=== PATIENT | male | born 1995 | race Caucasian/White ===

== ENCOUNTER 2022-04-08 12:38 | Emergency (ER) | payer OTHER ==
[~2022-04-08] VITALS: Ht 188 cm; Wt 147.4 kg
[2022-04-08] MEDS ORDERED: METO100ER PO (13:48)
[2022-04-08] MEDS ORDERED: Ventolin/Prove6.7 GM INH (13:48)
[2022-04-08] MEDS ORDERED: Vistaril25 MG PO (15:41)
== END 2022-04-08 15:59 | disposition home or self-care (01) ==
LOC: ER 12:38
DX: F41.9 Anxiety disorder, unspecified (principal); J45.909 Unspecified asthma, uncomplicated; F17.200 Nicotine dependence, unspecified, uncomplicated; Z88.0 Allergy status to penicillin; Z88.8 Allergy status to other drugs, medicaments and biological substances; Z79.899 Other long term (current) drug therapy
CPT/HCPCS: 71046; 93005; 93010; 99283-25; A9270